=== PATIENT | female | born 1940 | race Caucasian/White ===

== ENCOUNTER 2018-08-05 08:46 | Inpatient (IN) ==
[2018-08-05 09:15] LABS: BASO# 0.02 X1000 (0.0-0.2); BASO% 0.2 % (0.0-0.8); EOS% 1.1 % (0.0-10.0); HEMATOCRIT 35.3 % (37.0-47.0); HEMOGLOBIN 11.6 g/dL (12.0-16.0); IMM GRAN# 0.02 X1000 (0.0-0.04); IMM GRAN% 0.2 % (0.0-0.5); LYMPH# 1.49 X1000 (1.2-3.4); LYMPH% 16.2 % (20.5-51.1); MCH 30.5 PG (27-31); MCHC 32.9 g/dL (33-37); MCV 92.9 FL (81-99); MONO# 0.58 X1000 (0.11-0.59); MONO% 6.3 % (1.7-9.3); NEUT# 6.99 X1000 (1.4-6.5); PLT 219 X1000 (130-400); RDW 12.4 % (11.5-14.5)
--- NOTE | 2018-08-05 09:22 | PROVIDER DOCUMENTATION ---
HPI-Musculoskeletal Pain/Inj - GENERAL Chief Complaint: Hip Injury Stated Complaint: fall Time Seen by Provider: 08/05/18 08:59 Source: patient - HX OF PRESENT ILLNESS-MUSKULOSKELTAL Nature of Presenting Problem: C/O pain to L hip. Says was walking this am, lost balance, fell on L side. No head trauma, no LOC. Denies other pain/injury. Pain worse with touch, move. Severity in ED: severe Onset/Duration: abrupt Timing: still present Review of Systems - Adult - REVIEW OF SYSTEMS - ADULT Constitutional: reports: no symptoms reported Eyes: reports: no symptoms reported Ears, Nose, Mouth & Throat: reports: no symptoms reported Cardiovascular: reports: no symptoms reported Respiratory: reports: no symptoms reported Gastrointestinal: reports: no symptoms reported Genitourinary: reports: no symptoms reported Musculoskeletal: reports: see HPI Integumentary: reports: no symptoms reported Neurological: reports: no symptoms reported Psychiatric: reports: no symptoms reported Endocrine: reports: no symptoms reported Hematologic/Lymphatic: reports: no symptoms reported Allergic/Immunologic: reports: no symptoms reported Past History - Adult - PAST MEDICAL HISTORY-ADULT Review of Records: reports: Medications Reviewed Cardiovascular: reports: HTN, hyperlipidemia Respiratory: reports: denies history Gastrointestinal: reports: denies history Musculoskeletal: reports: denies history Psychiatric: reports: depression Physical Exam-Injury Related - Physical Exam-Injury Related Initial Vital Signs Reviewed: Yes General Appearance: appears well, alert, no apparent distress Eyes: PERRL/EOMI, pink conjunctivae Head, Ears, Nose, Mouth & Throat: normocephalic/atraumatic, moist mucous membranes, normal ENT inspection, pharynx normal Neck: non-tender, full range of motion, supple, normal inspection Respiratory: lungs clear, normal breath sounds, no pleuratic chest pain, no respiratory distress, no accessory muscle use Cardiovascular: normal peripheral pulses, no edema Peripheral Pulses: radial (R): 2+, radial (L): 2+ Abdominal Exam: non tender, soft Extremity: tenderness (L hip, no other LLE tenderness, no RLE tenderness) Integumentary: normal color, warm/dry Neurologic: senior asp net developer II-XII nml as tested, grossly normal, no motor/sensory deficits, other (L foot is N-V intact) Psych/Mental Status: normal mood/affect, normal thought content, normal thought process, oriented x 3 - Glascow Coma Score Best Eye Response (Xochitl): (4) open spontaneously Best Verbal Response ([place]): (5) oriented Best Motor Response (Xochitl): (6) obeys commands Progress - PLAN OF CARE/RESULTS Progress/Plan/Lab Results: Vital Signs - 8 hr 08/05/18 08:50 08/05/18 08:58 Temperature 98.4 F Pulse Rate 89 Respiratory Rate 18 21 Blood Pressure 177/86 O2 Sat by Pulse Oximetry 100 99 Laboratory Results - last 24 hr 08/05/18 08/05/18 08/05/18 09:07 09:07 09:07 WBC 9.20 RBC 3.80 L Hgb 11.6 L Hct 35.3 L MCV 92.9 MCH 30.5 MCHC 32.9 L RDW Std Deviation 12.4 Plt Count 219 MPV 9.0 Immature Gran % (Auto) 0.2 Neut % (Auto) 76.0 H Lymph % (Auto) 16.2 L Dare % (Auto) 6.3 Eos % (Auto) 1.1 Baso % (Auto) 0.2 Immature Gran # (Auto) 0.02 Neut # (Auto) 6.99 H Lymph # (Auto) 1.49 Dare # (Auto) 0.58 Eos # (Auto) 0.10 Baso # (Auto) 0.02 PT INR Sodium 140 Potassium 4.3 Chloride 106 Carbon Dioxide 24 L Anion Gap 10 BUN 26 H Creatinine 0.6 Estimated GFR/1.73 m2 > 60 BUN/Creatinine Ratio 43 Glucose 119 H Calculated Osmolality 285 Calcium 9.4 Blood Type O POSITIVE Antibody Screen NEGATIVE 08/05/18 09:07 WBC RBC Hgb Hct MCV MCH MCHC RDW Std Deviation Plt Count MPV Immature Gran % (Auto) Neut % (Auto) Lymph % (Auto) Dare % (Auto) Eos % (Auto) Baso % (Auto) Immature Gran # (Auto) Neut # (Auto) Lymph # (Auto) Dare # (Auto) Eos # (Auto) Baso # (Auto) PT 12.9 INR 0.90 Sodium Potassium Chloride Carbon Dioxide Anion Gap BUN Creatinine Estimated GFR/1.73 m2 BUN/Creatinine Ratio Glucose Calculated Osmolality Calcium Blood Type Antibody Screen Orders Category Date Time Status Johnson Cath Insertion ORDERED Care 08/05/18 08:52 Active CHEST-1 VIEW [RAD] Stat Exams 08/05/18 08:52 Completed XRAY HIP UNILATERAL LT [RAD] Stat Exams 08/05/18 08:52 Completed BASIC METABOLIC PANEL [CHEM] Stat Lab 08/05/18 09:07 Completed CBC WITH DIFF [HEME] Stat Lab 08/05/18 09:07 Completed PT [PROTIME WITH INR] [COAG] Stat Lab 08/05/18 09:07 Completed TYPE & SCREEN [BBK] Stat Lab 08/05/18 09:07 Completed EKG [EKG] Stat Ther 08/05/18 08:52 Draft Result Diagrams: 08/05/18 09:07 08/05/18 09:07 - EKG 1 Time of EKG reading by physician:: 08:57 EKG Read and Signed by:: Rosalino Chavez EKG Interpretation (*Must complete 3 of following elements*): Normal Rate: 86 Rhythm: NSR [place]: normal ST Wave: normal - XRAY 1 XRAY Study: Chest Impression: Normal 2 XRAY Study: Hip Impression: Abnormal XRAY Interpretation: displaced, comminuted intertroch fx - CONSULTS/PCP/HOSPITALIST Notification #1 *Consult/PCP/Hospitalist*: Jesus Manuel Time Discussed: 10:39 Reason/Comments: admit for Nicola Consult Disposition: Will see in ED #2 Consult: Zina Time Discussed: 09:45 Departure - Departure Date of Disposition Decision: 08/05/18 Time of Disposition Decision: 09:45 DIAGNOSIS: Intertrochanteric fracture of left hip Qualifiers: Encounter type: initial encounter Fracture type: closed Fracture alignment: displaced Qualified Code(s): S72.142A - Displaced intertrochanteric fracture of left femur, initial encounter for closed fracture Disposition: ADMITTED INPATIENT 09 Certified Medical Emergency: Emergent Condition: Good Referrals and Follow-Ups: Pool Petersen MD [Primary Care Provider] - - Critical Care Note This patient required my direct & personal management of CC.: No Attestation - Physician/ JERARDO Attestation Patient care was provided by Advanced Practice Provider:: No The physician spent face to face time with patient:: Yes Advanced Practice Provider documentation review:: Supervising physician onsite and consulted in the evaluation and care of this patient. The physician did have a face to face encounter with the patient.
[2018-08-05 09:31] LABS: AGAP 10; BUN 26 mg/dL (8-22); CALCIUM 9.4 mg/dL (8.8-10.2); CHLORIDE 106 mmol/L (98-107); COSMO 285; CREATININE 0.6 mg/dL (0.5-0.9); ESTIMATED GFR > 60; GLUCOSE 119 mg/dL (70-104); POTASSIUM 4.3 mmol/L (3.5-5.1); SODIUM 140 mmol/L (136-145); TCO2 24 mmol/L (25-35)
--- NOTE | 2018-08-05 09:32 | EKG Report ---
Test Performed on : 08/05/2018 08:54:27 AM Test Reason : fall Blood Pressure : / mmHG Vent. Rate : 085 BPM Atrial Rate : 085 BPM P-R Int : 142 ms QRS Dur : 084 ms QT Int : 372 ms P-R-T Axes : 090 -12 050 degrees QTc Int : 442 ms Normal sinus rhythm. Normal ECG No previous ECGs available Unconfirmed Result
[2018-08-05 09:44] LABS: INR 0.9; PROTIME 12.9 Seconds (11.0-16.0)
--- NOTE | 2018-08-05 09:44 | Diag Imaging Result Doc PS360 ---
EXAM: CHEST-1 VIEW HISTORY: fall TECHNIQUE: Chest single view COMPARISON: None. FINDINGS: The lungs are well expanded. No contusion. No pneumothorax. The mediastinum is not widened. The heart is not enlarged. The vessels are not distended. There are no infiltrates. No effusion identified. IMPRESSION: No injury. Electronically signed by Raul tSoner 08/05/2018 9:42 AM
--- NOTE | 2018-08-05 09:54 | Diag Imaging Result Doc PS360 ---
XRAY HIP UNILATERAL LT - 08/05/2018 INDICATION: fall TECHNIQUE: Two views COMPARISON: None FINDINGS: There is displaced severely comminuted intertrochanteric fracture of the left proximal femur. No dislocation. There is mild degenerative spurring of the left acetabulum. There is a temperature sensor in the urinary bladder. IMPRESSION: Acute displaced comminuted intertrochanteric left hip fracture. Electronically signed by Sam Gilbert 08/05/2018 9:52 AM
[2018-08-05] MEDS ORDERED: MORPHINE IV PRN (10:54)
[2018-08-05] MEDS ORDERED: NS 1,000 ML IV ONE (10:54)
[2018-08-05] MEDS ORDERED: ZOFRAN PO PRN (10:54)
[2018-08-05] MEDS ORDERED: ZOFRAN ONE (11:14)
[2018-08-05] MEDS ORDERED: MORPHINE ONE (11:15)
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
[2018-08-05] MEDS ORDERED: ZOFRAN IV PRN (14:07)
[2018-08-05] MEDS ORDERED: TYLENOL PO PRN (14:07)
[2018-08-05 14:39] LABS: INR 0.95; PROTIME 13.5 Seconds (11.0-16.0)
[2018-08-05 14:40] LABS: PTT 25.1 Seconds (22.3-41.8)
[2018-08-05] MEDS: DILAUDID IV PRN ×2 (14:41→22:06)
--- NOTE | 2018-08-05 17:05 | Diag Imaging Result Doc PS360 ---
EXAM: PELVIS HISTORY: left hip fracture TECHNIQUE: Pelvis single view COMPARISON: 9:21 AM FINDINGS: Intertrochanteric fracture to the left hip is again demonstrated. The femoral head remains in the acetabulum. Femoral shaft is rotated and superior place. This displacement several fracture fragments. This appearance is similar to the films taken earlier. IMPRESSION: Comminuted intertrochanteric fracture to the left hip. Electronically signed by Raul Stoner 08/05/2018 5:03 PM
--- NOTE | 2018-08-05 18:13 | ORTHOPAEDICS CONSULTATION ---
DATE: 08/05/2018 HISTORY OF PRESENT ILLNESS: Ms. Lee is a 78-year-old female who fell today and injured this left hip. She knows she has balance issues and she just went down, and landed on this left hip. She was not having any pain before. She fell and landed on this hip. She was out walking. Most of her pain is in the left hip. She denies pain elsewhere and she really cannot put any weight on it. PAST MEDICAL HISTORY: Gastroparesis. PAST SURGICAL HISTORY: She has had neck fracture with previous surgery; appendectomy; hysterectomy. SOCIAL HISTORY: She denies any tobacco use. Occasional alcohol use. ALLERGIES: No known drug allergies. MEDICATIONS: Per the medical record. REVIEW OF SYSTEMS: Positive for the gastroparesis and the left hip pain. All other systems are essentially negative. PHYSICAL EXAMINATION: General: Well-developed, well-nourished female. She is in no acute distress, lying in her bed. Head and neck is normocephalic, atraumatic. Respirations: Nonlabored breathing. Cardiovascular: Regular pulse. Abdomen is nondistended. Left lower extremity exam: She has tenderness to palpation of the hip. She has good capillary refill to the toes. DP pulse 2+. She has good dorsiflexion to plantar flexion of the foot, and good sensation to light touch to the foot. No tenderness to palpation of the right lower extremity. DIAGNOSTIC DATA: Radiographs showed an extremely comminuted intertrochanteric hip fracture on the left side. ASSESSMENT: Left intertrochanteric hip fracture. PLAN: I discussed with Ms. Lee about her fracture. Unfortunately this is a pretty bad fracture. I did recommend surgical intervention. This will be a left trochanteric femoral nailing. I went over with her the procedure, risks, benefits and potential complications. Risks include, but are not limited to, infection, wound healing problems, damage to nerves, arteries or veins, numbness, malunion, nonunion, hardware-related issues, continued pain, DVT and anesthesia- related risks. After discussing these with the patient, she expressed understanding and wished to proceed. She will be n.p.o. after midnight tonight. We will get her on the schedule for tomorrow. It will be either me or Dr. Lovelace who will perform her surgery, and I let them know this. We will re-evaluate everything in the morning. cc: MD Pool Miner MD
[2018-08-05] MEDS ORDERED: PRILOSEC PO SCH (21:00)
[2018-08-05] MEDS: NS 1,000 ML IV SCH (22:06)
[2018-08-05 23:51] LABS: URINE SOURCE CATH
[2018-08-05 23:59] LABS: BILIRUBIN URINE NEGATIVE (NEGATIVE); BLOOD URINE SMALL (NEGATIVE); COLOR YELLOW; GLUCOSE URINE NEGATIVE (NEGATIVE); KETONE URINE NEGATIVE (NEGATIVE); LEUKOCYTES URINE TRACE (NEGATIVE); NITRITE URINE NEGATIVE (NEGATIVE); PH URINE 5.5; PROTEIN URINE TRACE mg/dL (NEGATIVE); SP GRAVITY URINE 1.023; TURBIDITY URINE CLEAR (CLEAR); UROBILINOGEN URINE NORMAL (NORMAL)
[2018-08-06] LABS: UR EPITHELIAL CELLS <10 /HPF (<10); URINE BACTERIA NEGATIVE /HPF; URINE RBC <10 /HPF (<10); URINE WBC <10 /HPF (<10)
[2018-08-06] MEDS: DILAUDID IV PRN ×3 (03:36→17:00)
[2018-08-06 06:12] LABS: BASO# 0.01 X1000 (0.0-0.2); BASO% 0.2 % (0.0-0.8); HEMATOCRIT 26.1 % (37.0-47.0); HEMOGLOBIN 8.4 g/dL (12.0-16.0); LYMPH# 1.24 X1000 (1.2-3.4); MCH 30.8 PG (27-31); MCHC 32.2 g/dL (33-37); MCV 95.6 FL (81-99); MONO# 0.71 X1000 (0.11-0.59); MONO% 11.4 % (1.7-9.3); NEUT# 4.25 X1000 (1.4-6.5); NEUT% 68.4 % (42.2-75.2); PLT 179 X1000 (130-400); RBC 2.73 XMIL (4.2-5.4); RDW 12.5 % (11.5-14.5); WBC 6.21 X1000 (4.8-10.8)
[2018-08-06 06:40] LABS: AGAP 6; ALB/GLOB RATIO 1.3; ALBUMIN 3.1 g/dL (3.5-5.0); ALKALINE PHOSPHATASE 61 U/L (32-104); BUN 17 mg/dL (8-22); CHLORIDE 106 mmol/L (98-107); COSMO 279; CREATININE 0.6 mg/dL (0.5-0.9); ESTIMATED GFR > 60; GLUCOSE 122 mg/dL (70-104); GOT 16 U/L (10-30); GPT 10 U/L (10-36); MAGNESIUM 1.8 mg/dL (1.5-2.7); POTASSIUM 4.1 mmol/L (3.5-5.1); SODIUM 138 mmol/L (136-145); TCO2 26 mmol/L (25-35); TOTAL BILIRUBIN 0.31 mg/dL (0.20-1.00); TOTAL PROTEIN 5.4 g/dL (6.3-8.3)
[2018-08-06] MEDS: NS 1,000 ML IV SCH ×3 (08:06→20:27)
[2018-08-06] MEDS: ZOVIRAX PO SCH (08:10)
[2018-08-06] MEDS: COZAAR PO SCH (08:10)
[2018-08-06] MEDS: WELLBUTRIN XL PO SCH (08:10)
[2018-08-06] MEDS ORDERED: KEFZOL 1 GM/D5W 1 GM/50 ML IVPB ONE (11:27)
[2018-08-06] MEDS ORDERED: DIPRIVAN 1% ONE (11:27)
[2018-08-06] MEDS ORDERED: FENTANYL ONE (11:29)
[2018-08-06] MEDS ORDERED: XYLOCAINE-MPF 2% ONE (11:33)
[2018-08-06] MEDS ORDERED: ZEMURON ONE (11:33)
[2018-08-06] MEDS ORDERED: STERILE WATER INJ. ONE (11:33)
[2018-08-06] MEDS ORDERED: EPHEDRINE ONE (11:59)
--- NOTE | 2018-08-06 13:31 | OPERATIVE NOTE ---
PROCEDURE DATE: 08/06/2018 PREOPERATIVE DIAGNOSIS: Left intertrochanteric femur fracture. POSTOPERATIVE DIAGNOSIS: Left intertrochanteric femur fracture. PROCEDURE: Intramedullary nailing left femur with Synthes 11 x 360 mm TFN nail. SURGEON: Thom Lovelace MD GEOLOGY SCIENTIST: DONNA Lindsay. ANESTHESIA: General. IV FLUIDS: 600 mL lactated Ringer's. ESTIMATED BLOOD LOSS: 200 mL. COMPLICATIONS: None. INDICATIONS: The patient is a pleasant 78-year-old female who is one day status post fall sustaining pain and discomfort to the left hip. X-rays revealed left intertrochanteric femur fracture. The patient is admitted to the hospital, and Orthopedic consultation was requested. Recommendation to proceed with intramedullary nailing was offered. Risks and benefits of surgery were explained, including the risks of anesthesia, , bleeding, infection, failure to relieve pain, postop stiffness, nerve injury, blood clots, and other imponderables. All questions were answered. The patient wished to proceed with surgery. DETAILS OF OPERATION: Patient was taken to the operating room and underwent general anesthesia. After adequate anesthesia was obtained, the patient was placed on the fracture table. A provisional reduction was obtained and confirmed with C-arm visualization both AP and lateral projections. The left lower extremity was subsequently prepped and draped in the usual sterile fashion. Approximately 3 fingerbreadths proximal to the greater trochanter, a lateral incision was made. The blunt dissection was performed to the tip of the greater trochanter. A guide pin was then placed along the tip of the greater trochanter and advanced into the intramedullary canal. Good positioning was confirmed with AP and lateral projections. A starting reamer was then passed. A ball-tipped guide pin was then placed in the intramedullary canal down to the femoral shaft. Length of the nail was determined to be 360 mm. Sequential reaming was then conducted up to size 12 mm in preparation for 11 mm diameter nail. An 11 x 360 mm nail was then advanced over the ball-tipped guide pin, and the ball-tipped guide pin was subsequently removed. Using the outrigger guide through an incision, the guide was then placed over the lateral proximal aspect of the femur and along the lateral cortex of the proximal femur. Guide pin was then advanced across the fracture site in the femoral neck and head. Good positioning was confirmed with AP and lateral projections. Lateral cortex was reamed. A 90 mm helical blade was then advanced and had good purchase. The proximal set screw was tightened in a standard fashion. Using the perfect alatna technique, a distal locking screw was placed in the most proximal static locking hole. Good purchase was obtained. A final C-arm visualization revealed good alignment of the fracture and good position of the hardware. The wounds were copiously irrigated. Number 1 Vicryl was used. The deep fascia proximal wound followed by 2-0 Vicryl in the two proximal wounds and skin nancy in all the wounds. Adaptic, sterile 4 x 4's, ABD pad, and tape was applied to the left lower extremity. The patient tolerated the procedure well. No complications. The patient was transferred to the recovery room in stable condition. cc: MD Pool Ren MD
[2018-08-06] MEDS: MORPHINE ONE ×2 (13:50→14:04)
[2018-08-06] MEDS: TYLENOL PO SCH (14:00)
[2018-08-06] MEDS ORDERED: MORPHINE IV PRN (14:39)
[2018-08-06] MEDS ORDERED: OXY IR PO PRN (14:39)
[2018-08-06] MEDS ORDERED: ZOFRAN IV PRN (14:39)
[2018-08-06] MEDS ORDERED: MILK OF MAGNESIA PO PRN (14:39)
[2018-08-06] MEDS ORDERED: HALDOL IV PRN (14:45)
[2018-08-06 15:47] LABS: HEMATOCRIT 24.8 % (37.0-47.0)
[2018-08-06] MEDS: ZOCOR PO SCH (20:26)
[2018-08-06] MEDS: KEFZOL 1 GM/D5W 1 GM/50 ML IVPB IV SCH (20:26)
[2018-08-06] MEDS: COLACE PO SCH (20:26)
[2018-08-06] MEDS: NORCO-7.5 PO PRN (20:27)
[2018-08-07] MEDS: TYLENOL PO SCH ×4 (02:06→23:31)
[2018-08-07] MEDS: KEFZOL 1 GM/D5W 1 GM/50 ML IVPB IV SCH (04:30)
[2018-08-07] MEDS: NS 1,000 ML IV SCH ×2 (05:41→15:06)
--- NOTE | 2018-08-07 07:05 | PROGRESS NOTE ---
DATE: 08/07/2018 SUBJECTIVE: The patient is a pleasant 78-year-old female who is one day status post intramedullary nailing of the left femur. She is currently resting comfortably this morning. OBJECTIVE: On physical exam, patient's left lower extremity dressing is intact. Calf is soft. She has active dorsiflexion and plantar flexion. Labs are pending. IMPRESSION: Postoperative day #1 status post left intramedullary nailing left femur. PLAN: At this point, patient will begin mobilization physical therapy with weightbearing as tolerated left lower extremity. Plsql Developer have been consulted for discharge planning for inpatient rehabilitation. We will change her dressing tomorrow. cc: MD Pool Ren MD
[2018-08-07 07:10] LABS: AGAP 7; BUN 8 mg/dL (8-22); CALCIUM 7.4 mg/dL (8.8-10.2); CHLORIDE 106 mmol/L (98-107); COSMO 276; CREATININE 0.6 mg/dL (0.5-0.9); ESTIMATED GFR > 60; GLUCOSE 130 mg/dL (70-104); POTASSIUM 3.7 mmol/L (3.5-5.1); SODIUM 138 mmol/L (136-145); TCO2 25 mmol/L (25-35)
[2018-08-07] MEDS ORDERED: FERROUS SULFATE PO SCH (08:00)
[2018-08-07] MEDS: XARELTO PO SCH (08:28)
[2018-08-07] MEDS: NORCO-7.5 PO PRN ×3 (08:29→19:40)
[2018-08-07] MEDS: PERIDEX MT SCH ×2 (08:34→23:30)
[2018-08-07] MEDS: WELLBUTRIN XL PO SCH (08:34)
[2018-08-07] MEDS: ZOVIRAX PO SCH (08:35)
[2018-08-07 08:36] LABS: HEMATOCRIT 21.4 % (37.0-47.0); HEMOGLOBIN 6.7 g/dL (12.0-16.0)
[2018-08-07] MEDS ORDERED: NS 500 ML ONE (10:15)
[2018-08-07] MEDS: COZAAR PO SCH (14:13)
[2018-08-07] MEDS: ZOCOR PO SCH (23:31)
[2018-08-07] MEDS: COLACE PO SCH (23:31)
[2018-08-08] MEDS: TYLENOL PO SCH ×4 (05:19→21:34)
[2018-08-08] MEDS: XARELTO PO SCH (05:19)
[2018-08-08] MEDS: NS 1,000 ML IV SCH (06:23)
[2018-08-08 07:02] LABS: HEMOGLOBIN 8.2 g/dL (12.0-16.0)
[2018-08-08] MEDS ORDERED: DULCOLAX PR ONE (08:04)
--- NOTE | 2018-08-08 09:28 | ORTHOPAEDICS PROGRESS NOTE ---
DATE: 08/08/2018 SUBJECTIVE: The patient is a pleasant, 78-year-old female who is 2 days status post intramedullary nailing of the left femur. She feels better this morning. She did receive a transfusion yesterday. PHYSICAL EXAMINATION: Patient left lower extremity dressing is intact. Calf is soft. She has active dorsiflexion and plantar flexion. LABORATORY DATA: Her labs are pending this morning. IMPRESSION: 1. Postoperative day #2 status post intramedullary nailing of the left femur. 2. Acute blood loss anemia. Received transfusion yesterday. PLAN: At this point, we will continue with mobilization and physical therapy. We will await her post-transfusion hemoglobin and hematocrit. We will change her dressing today. Awaiting rehab placement. cc: MD Pool Ren MD
[2018-08-08] MEDS: ZOVIRAX PO SCH (09:55)
[2018-08-08] MEDS: COZAAR PO SCH (09:56)
[2018-08-08] MEDS: FERGON PO SCH (09:56)
[2018-08-08] MEDS: WELLBUTRIN XL PO SCH (09:56)
[2018-08-08] MEDS: MIRALAX PO SCH (14:41)
[2018-08-08] MEDS: VITAMIN C PO SCH (14:41)
[2018-08-08] MEDS: NORCO-7.5 PO PRN (14:41)
[2018-08-08] MEDS: COLACE PO SCH (21:34)
[2018-08-08] MEDS: ZOCOR PO SCH (21:35)
[2018-08-09] MEDS: TYLENOL PO SCH ×4 (03:40→21:52)
[2018-08-09] MEDS: XARELTO PO SCH (05:52)
[2018-08-09 07:01] LABS: HEMOGLOBIN 7.8 g/dL (12.0-16.0)
[2018-08-09] MEDS: MIRALAX PO SCH (09:26)
[2018-08-09] MEDS: WELLBUTRIN XL PO SCH (09:26)
[2018-08-09] MEDS: NORCO-7.5 PO PRN ×2 (09:26→13:22)
[2018-08-09] MEDS: VITAMIN C PO SCH (09:26)
[2018-08-09] MEDS: COZAAR PO SCH (09:26)
[2018-08-09] MEDS: FERGON PO SCH (09:26)
[2018-08-09] MEDS: ZOVIRAX PO SCH (09:27)
[2018-08-09] MEDS ORDERED: GAVISCON LIQUID PO PRN (10:58)
--- NOTE | 2018-08-09 11:02 | PROGRESS NOTE ---
DATE: 08/09/2018 SUBJECTIVE: Erin Lee is a 78-year-old female who has had a left TFN placed by Dr. Lovelace on the . She has no new complaints. OBJECTIVE: She is a well-developed, well-nourished female she is sitting in a chair, resting comfortably, is alert and oriented. Her hematocrit is 24, hemoglobin is 7.8. ASSESSMENT: Stable left TFN. PLAN: She will continue to work with physical therapy. Likely go to rehab the 1st part of the week. cc: MD Pool Jimenez MD
[2018-08-09] MEDS: ZOCOR PO SCH (21:52)
[2018-08-09] MEDS: COLACE PO SCH (21:52)
[2018-08-10 07:03] LABS: BASO# 0.01 X1000 (0.0-0.2); BASO% 0.2 % (0.0-0.8); EOS% 3.3 % (0.0-10.0); HEMATOCRIT 23.9 % (37.0-47.0); HEMOGLOBIN 7.7 g/dL (12.0-16.0); LYMPH# 0.78 X1000 (1.2-3.4); LYMPH% 12.7 % (20.5-51.1); MCH 30.9 PG (27-31); MCHC 32.2 g/dL (33-37); MONO# 0.53 X1000 (0.11-0.59); MONO% 8.6 % (1.7-9.3); MPV 8.8 FL (7.4-10.4); NEUT# 4.63 X1000 (1.4-6.5); NEUT% 75.2 % (42.2-75.2); PLT 228 X1000 (130-400); RBC 2.49 XMIL (4.2-5.4); RDW 12.7 % (11.5-14.5); RETIC% 3.66 % (0.8-2.1); WBC 6.15 X1000 (4.8-10.8)
[2018-08-10] MEDS ORDERED: DULCOLAX PR PRN (07:08)
[2018-08-10 07:20] LABS: IRON SATURATION 19 %; TIBC 162 ug/dL; TOTAL IRON 31 ug/dL (49-151); UNBOUND IRON 131 ug/dL (112-346)
[2018-08-10] MEDS: TYLENOL PO SCH ×3 (07:23→22:03)
[2018-08-10] MEDS: XARELTO PO SCH (07:23)
--- NOTE | 2018-08-10 08:10 | PROGRESS NOTE ---
DATE: 08/10/2018 SUBJECTIVE: Erin Lee is a 78-year-old female who is status post left TFN on 08/06/2018. She still states she has not had a bowel movement. She has had minimal progress with Physical Therapy as well. OBJECTIVE: She is a well-developed, well-nourished female. She is alert, oriented, and cooperative with the exam. Her hematocrit has dropped down to 23.9. Her hemoglobin is 7.7. Her vital signs are stable. She is afebrile. Her wounds are clean, dry, and intact without sign of infection. Her leg is neurovascularly intact without sign of DVT. ASSESSMENT: Stable left TFN with acute blood loss anemia and constipation. PLAN: I have discussed this with her. We are going to transfuse her 2 units, which should give her more energy. Hopefully, she can participate more in physical therapy as she only stood up and got to a chair yesterday, and refused to walk. Also, we are going to give her a suppository. If that does not work, I have discussed with the nurse, further options for relieving her constipation, including magnesium citrate and a Fleets enema. Hopefully by tomorrow, she will be ready to go to rehab. Dr. Lovelace will return to follow her tomorrow. cc: MD Pool Jimenez MD
[2018-08-10] MEDS: ZOVIRAX PO SCH (08:31)
[2018-08-10] MEDS: COZAAR PO SCH (08:31)
[2018-08-10] MEDS: FERGON PO SCH (08:31)
[2018-08-10] MEDS: VITAMIN C PO SCH (08:31)
[2018-08-10] MEDS: MIRALAX PO SCH (08:31)
[2018-08-10] MEDS: WELLBUTRIN XL PO SCH (08:32)
[2018-08-10] MEDS ORDERED: NS 500 ML IV SCH (08:45)
--- NOTE | 2018-08-10 09:08 | PROGRESS NOTE ---
DATE: 08/10/2018 SUBJECTIVE: The patient states that she is eating well. She complains that her bowels are not moving on her own accord, and she feels like she has urinary retention, even though she has had a Johnson catheter removed and has been bladder scanned. She states she has no trouble with elimination of urine. She has had no fever. She complains that physical therapy has not been in to see her, but the chart documentation states that they have been in every day working with her. OBJECTIVE: Vitals: Temperature 98.7, pulse 92, respiratory rate 18, blood pressure 132/62, 100% saturated on room air. Lungs: The patient's lungs are clear. Cardiovascular: Regular. Neurologic: The patient is alert, oriented, conversive and appropriate. ASSESSMENT AND PLAN: 1. The patient is postoperative day 3 for repair of a hip fracture. She continues with physical therapy. As soon as a bed is available at [facility], she is going there for rehab. 2. The patient had a transfusion of 1 unit of packed red cells for her anemia day before yesterday. 3. The patient continues on physical therapy. 4. The patient has received stimulant laxatives and hopefully, this will result in some improved functionality. 5. Nutrition appears adequate. cc: MD Pool Carlisle MD
[2018-08-10] MEDS: ZOCOR PO SCH (22:02)
[2018-08-10] MEDS: COLACE PO SCH (22:03)
[2018-08-10] MEDS: NORCO-7.5 PO PRN (22:03)
[2018-08-11] MEDS: TYLENOL PO SCH ×2 (06:20→16:29)
[2018-08-11] MEDS: XARELTO PO SCH (06:21)
[2018-08-11] MEDS ORDERED: CYANOCOBALAMIN IM ONE (08:32)
[2018-08-11] MEDS: MIRALAX PO SCH (08:44)
[2018-08-11] MEDS: ZOVIRAX PO SCH (08:45)
[2018-08-11] MEDS: WELLBUTRIN XL PO SCH (08:45)
[2018-08-11] MEDS: COZAAR PO SCH (08:45)
[2018-08-11] MEDS: VITAMIN C PO SCH (08:45)
[2018-08-11] MEDS: FERGON PO SCH (08:45)
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
[2018-08-11] MEDS: NORCO-7.5 PO PRN ×2 (11:17→16:26)
[2018-08-11 11:50] LABS: HEMATOCRIT 38.6 % (37.0-47.0); HEMOGLOBIN 12.8 g/dL (12.0-16.0)
[2018-08-11] MEDS: ZOCOR PO SCH (21:27)
[2018-08-11] MEDS: COLACE PO SCH (21:27)
[2018-08-12] MEDS: NORCO-7.5 PO PRN ×2 (05:08→14:36)
[2018-08-12] MEDS: XARELTO PO SCH (05:08)
[2018-08-12 07:24] VITALS: BP 143/63
[2018-08-12] MEDS: TYLENOL PO SCH ×2 (08:02→15:17)
[2018-08-12] MEDS: MIRALAX PO SCH (13:03)
[2018-08-12] MEDS: VITAMIN C PO SCH (13:03)
[2018-08-12] MEDS: COZAAR PO SCH (13:04)
[2018-08-12] MEDS: WELLBUTRIN XL PO SCH (13:04)
[2018-08-12] MEDS: FERGON PO SCH (13:04)
[2018-08-12] MEDS: ZOVIRAX PO SCH (13:04)
== END 2018-08-12 15:40 | DRG 481 ==
LOC: SUPCPDRO → ED 08:46 → EDIPHOLD 11:06 → 4N 13:59
PROVIDERS: ADMIT Internal Medicine; ATTEND Internal Medicine
CPT/HCPCS: 36430; 51702; 71010; 71045; 72170; 73502; 76000; 80048; 80053; 81001; 82306; 82607; 82746; 83540; 83550; 83735; 85014; 85018; 85025; 85045; 85610; 85730; 86850; 86900; 86901; 86920; 87088; 93005; 94760; 94761; 94799; 96374; 97110; 97116; 97162; 97530; 99285; A9270; J0690; J1170; J2270; J2405; J3010; J3420; J7030; J7040; P9016